=== PATIENT | female | born 1960 | race Caucasian/White ===

== ENCOUNTER 2017-06-10 08:06 | Emergency (ER) | payer BC ==
[2017-06-10 08:16] VITALS: BP 173/75
--- NOTE | 2017-06-10 14:46 | UC ---
Queenie Villareal Gabriel, scribed for Cayla Weldon MD on 06/10/17 at 0849 . Complaint Female HPI - HPI Summary HPI Summary: This patient is a 56 year old F c/o freq / urg, hematuria since last evening. No fever / chills. No N/v/d. No rash. + bladder discomfort with urination. Passed a couple clots with urine. Drank lots of water, better this morning, but wanted to be checked. Also notes that she has had ongoing sinus congestion , ear congestion, swollen "glands" (neck) since mid last month. Taking decongestants, which helps but does not alleviate sx. - History Of Current Complaint Chief Complaint: UCGU Stated Complaint: URINARY ISSUE Time Seen by Provider: 06/10/17 08:20 Hx Obtained From: Patient Onset/Duration: Lasting Hours, Still Present Timing: Constant Severity Initially: Moderate Severity Currently: None Pain Intensity: 8 Pain Scale Used: 0-10 Numeric Character: Burning Aggravating Factor(s): Urination Associated Signs And Symptoms: Positive: Negative - increased back pain from baseline, Vaginal Bleeding/Discharge. Negative: Back Pain - Allergies/Home Medications Allergies/Adverse Reactions: Allergies Allergy/AdvReac Type Severity Reaction Status Date / Time No Known Allergies Allergy Verified 06/10/17 08:16 Home Medications: Home Medications Atorvastatin* [Lipitor 10 MG*] 1 tab PO DAILY 06/10/17 [History Confirmed ] Biotin 1 tab PO DAILY 06/10/17 [History Confirmed 06/10/17] Cholecalciferol [Vitamin D] 1 tab PO DAILY 06/10/17 [History Confirmed 06/10/17] Guaifenesin [Guaifenesin ER] 1 tab PO Q12HR PRN 06/10/17 [History Confirmed ] PMH/Surg Hx/FS Hx/Imm Hx Previously Healthy: Yes Other History Of: Negative For: HIV, Hepatitis B - Surgical History Surgical History: None - Family History Known Family History: Negative: Hypertension - Social History Alcohol Use: Rare Substance Use Type: None Smoking Status (MU): Former Smoker Household Exposure Type: Cigarettes - Immunization History Most Recent Influenza Vaccination: 04/2017 Review of Systems Constitutional: Negative Skin: Negative Eyes: Negative ENT: Sore Throat, Sinus Congestion Respiratory: Cough - nonprod Cardiovascular: Negative Gastrointestinal: Negative Genitourinary: Hematuria - clotting, Urgency, Other - cloudy urine see hpi Motor: Negative Neurovascular: Negative Musculoskeletal: Negative Neurological: Negative Psychological: Negative Is Patient Immunocompromised?: No All Other Systems Reviewed And Are Negative: Yes Physical Exam Triage Information Reviewed: Yes Appearance: Well-Nourished - sitting up, conversing easily and appropriately Vital Signs: Initial Vital Signs Temp 97.0 F 06/10/17 08:11 Pulse 97 06/10/17 08:11 Resp 16 06/10/17 08:11 BP 173/75 06/10/17 08:11 Pulse Ox 98 06/10/17 08:11 Vital Signs Reviewed: Yes Eye Exam: Normal ENT Exam: Other ENT: Positive: Pharyngeal erythema - mild post pharyngeal redness, Other - Chang , Retracted TM L>R. Neck exam: Normal Neck: Positive: Supple, Nontender, Other: - mild ant adenopathy Respiratory Exam: Normal, Other - no dyspnea, no tachypnea, normal respiratory rate Respiratory: Positive: Chest non-tender, Lungs clear Cardiovascular Exam: Normal - Heart rate regular, good general skin color, good capillary refill Abdominal Exam: Normal Abdomen Description: Positive: Nontender, No Organomegaly, Soft Bowel Sounds: Positive: Present, Other: - No CVAT appreciated Musculoskeletal Exam: Normal Musculoskeletal: Positive: Strength Intact Neurological Exam: Normal - nonfocal, grossly intact Psychological Exam: Normal - conversing easily and appropriately Skin Exam: Normal - no visible or reported rash Complaint Female Dx - Course Course Of Treatment: Reviewed urine dip with pt. Reviewed recommendation for f/ u PCP as scheduled. Advised to hold off taking decongestant for now (BP). Urine cx sent. Reviewed coa / tx plan. Questions as posed answered to the best of my ability. - Differential Dx/Diagnosis Provider Diagnoses: cystitis with hematuria. upper resp congestion. elevated BP Discharge - Discharge Plan Condition: Stable Disposition: HOME Prescriptions: Ciprofloxacin TAB* [Cipro 500 MG TAB*] 500 mg PO BID #14 tab Patient Education Materials: Urinary Tract Infection in Women (ED), Rhinosinusitis (ED), Hematuria (ED), Hypertension in the Older Adult (ED) Referrals: Sherri Brian MD [Primary Care Provider] - Additional Instructions: Your blood pressure was elevated during today's visit, 173/75. Please follow up with your primary care provider in 1-2 weeks. Do not take your vitamin D supplement at the same time as your antibiotic (wait 2 hours), drink plenty of water, and avoid prolonged direct sun exposure. If you have sudden unexplained joint pain stop the antibiotic and see your primary care provider. Stop taking your decongestant. See medical attention for worse or new problems. The documentation as recorded by the Queenie bhakta Gabriel accurately reflects the service I personally performed and the decisions made by me, Cayla Weldon MD.
== END 2017-06-10 09:01 | disposition home or self-care (01) ==
LOC: UCEAST 08:06
DX: N30.91 Cystitis, unspecified with hematuria (principal); R09.81 Nasal congestion; R03.0 Elevated blood-pressure reading, without diagnosis of hypertension
CPT/HCPCS: 81003; 87086; 99212; G0463

== ENCOUNTER 2017-09-01 09:09 | Emergency (ER) | payer BC ==
[2017-09-01 09:18] VITALS: BP 164/97
[2017-09-01] MEDS ORDERED: Aspirin 81 mg CHEW TAB* 81 MG TAB.CHEW PO ONE (09:39)
--- NOTE | 2017-09-01 17:01 | UC ---
Sukumar Villareal Angela, scribed for Eddie Ma MD on 09/01/17 at 0938 . Cardiac HPI - HPI Summary HPI Summary: This pt is a 57 y/o female presenting to [facility] c/o chest pain for the past 2 weeks. Pt states her pain began 2 weeks ago after she took decongestants. Pt describes her chest pain as pressure and squeezing. She rates her pain as 7 out of 10 in severity and notes it is intermittent. Pt reports she has been traveling and flying for the last 2 weeks and today her symptoms worsened. She additionally states SOB and some nausea. Denies dizziness. - History of Current Complaint Chief Complaint: UCChestPain Stated Complaint: CHEST COMPLAINT Time Seen by Provider: 09/01/17 09:20 Hx Obtained From: Patient Onset/Duration: Lasting Days, Still Present Timing: Constant Current Severity: Severe Pain Intensity: 7 Chest Pain Location: Diffuse Character: Pressure/Squeezing - pressure and squeezing Aggravating Factor(s): Nothing Alleviating Factor(s): Nothing Associated Signs & Symptoms: Positive: Chest Pain, SOB, Nausea/Vomiting - nausea. Negative: Dizziness - Allergy/Home Medications Allergies/Adverse Reactions: Allergies Allergy/AdvReac Type Severity Reaction Status Date / Time No Known Allergies Allergy Verified 09/01/17 09:18 PMH/Surg Hx/FS Hx/Imm Hx Other Endocrine History: DENIES: diabetes Cardiovascular History: Other Other Cardiovascular History: dyslipidemia Other History Of: Negative For: HIV, Hepatitis B - Surgical History Surgical History: None - Family History Known Family History: Positive: Hypertension - Social History Alcohol Use: Occasionally Substance Use Type: None Smoking Status (MU): Former Smoker Household Exposure Type: Cigarettes - Immunization History Most Recent Influenza Vaccination: 04/2017 Review of Systems Constitutional: Negative Skin: Negative Eyes: Negative ENT: Negative Respiratory: Shortness Of Breath Cardiovascular: Chest Pain Gastrointestinal: Nausea Genitourinary: Negative Motor: Negative Neurovascular: Negative Musculoskeletal: Negative Neurological: Negative Psychological: Negative All Other Systems Reviewed And Are Negative: Yes Physical Exam - Summary Physical Exam Summary: VITAL SIGNS: Reviewed. GENERAL: Patient is a well-developed and nourished female who is lying comfortable in the stretcher. Patient is not in any acute respiratory distress. HEAD AND FACE: Normocephalic EYES: PERRLA, EOMI x 2. EARS: Hearing grossly intact. MOUTH: Oropharynx within normal limits. NECK: Supple, trachea is midline, no adenopathy, no JVD, no carotid bruit. CHEST: Symmetric, no tenderness at palpation LUNGS: Clear to auscultation bilaterally. No wheezing or crackles. CVS: Regular rate and rhythm, S1 and S2 present, no murmurs or gallops appreciated. Pt is hypertensive. ABDOMEN: Soft, non-tender. Bowel sounds are normal. No abdominal abnormal pulsations. EXTREMITIES: Full ROM in all major joints, no edema, no cyanosis or clubbing. NEURO: Alert and oriented x 3. No acute neurological deficits. Speech is normal and follows commands. SKIN: Dry and warm Triage Information Reviewed: Yes Vital Signs: Initial Vital Signs Temp 98.0 F 09/01/17 09:12 Pulse 98 09/01/17 09:12 Resp 16 09/01/17 09:12 BP 164/97 09/01/17 09:12 Pulse Ox 96 09/01/17 09:12 Vital Signs Reviewed: Yes Diagnostics - EKG Cardiac Rate: NL Cardiac Rhythm: Sinus: Normal - EKG at 09:26 shows normal sinus rhythm at [address] elevations. No ST depressions. - Assessment/Plan Course Of Treatment: This pt is a 57 y/o female presenting to [facility] c/o chest pain for the past 2 weeks. Pt states her pain began 2 weeks ago after she took decongestants. Pt describes her chest pain as pressure and squeezing. She rates her pain as 7 out of 10 in severity and notes it is intermittent. Pt reports she has been traveling and flying for the last 2 weeks and today her symptoms worsened. She additionally states SOB and some nausea. Denies dizziness. In the UC course the pt was given aspirin. The EKG shows no STEMI, however due to the pts symptoms and comorbidities I will send the pt to the ED for further assessment. Pt understands and agrees. She was offered an ambulance but she declines ambulance. Pts will drive the pt to the ED via private car. At 09:42 I discussed pts case with Dr. Canales, provider in the ED. Plan of care was discussed with the patient and pt understands and agrees. All questions were answered to patient satisfaction. Pt will be discharged to go immediately to the emergency department. Pt is hemodynamically stable, alert and oriented x3. The patient was found to have increased blood pressure in UC. The patient will follow up with PCP for better control of BP. - Clinical Impression Provider Diagnoses: Chest pain. Hypertension - Physician Notifications Discussed Patient Care With: Migel Canales Time Discussed With Above Provider: 07:42 Instructed by Provider To: Transfer - I discussed pt care with Dr. Canales. Pt will be transferred to the ED. Discharge - Sign-Out/Discharge Documenting (check all that apply): Discharge - discharge to home - Discharge Plan Condition: Stable Disposition: HOME Patient Education Materials: Chest Pain (DC), Chronic Hypertension (DC) Referrals: Sherri Brian MD [Primary Care Provider] - Additional Instructions: Patient will be discharge to the ED for further assessment. Declined ambulance. FOLLOW UP WITH YOUR PRIMARY CARE PROVIDER WITHIN ONE WEEK FOR HIGH BLOOD PRESSURE NOTED TODAY. RETURN TO URGENT CARE OR THE ED FOR ANY WORSENING OR NEW SYMPTOMS. The documentation as recorded by the Sukumar bhakta Angela accurately reflects the service I personally performed and the decisions made by , Eddie Ma MD.
== END 2017-09-01 09:51 | disposition home or self-care (01) ==
LOC: UCEAST 09:09
DX: R07.89 Other chest pain (principal); I10 Essential (primary) hypertension; R06.02 Shortness of breath; R11.2 Nausea with vomiting, unspecified; E78.5 Hyperlipidemia, unspecified; Z87.891 Personal history of nicotine dependence
CPT/HCPCS: 93005; 99212; G0463

== ENCOUNTER → 2017-09-01 10:01 | Emergency (ER) | payer BC ==
[2017-09-01 11:01] LABS: ABS Basophils 0 10^3/ul (0-0.2); ABS Eosinophils 0.1 10^3/ul (0-0.6); ABS Lymphocytes 1.7 10^3/ul (1.0-4.8); ABS Monocytes 0.5 10^3/ul (0-0.8); ABS Nucleated RBC 0 10^3/ul; Eosinophil % 1.8 % (0-6); Hematocrit 40 % (35-47); Hemoglobin 13.3 g/dl (12.0-16.0); Lymphocyte % 26.5 % (25-47); Mean Corpuscular HGB Conc 33 g/dl (31-36); Mean Corpuscular Hemoglobin 30 pg (27-31); Mean Corpuscular Volume 91 fL (80-97); Mean Platelet Volume 8.9 um3 (7.4-10.4); Nucleated Red Blood Cells % 0; Platelet Count 210 10^3/ul (150-450); Red Blood Count 4.43 10^6/ul (4.0-5.4); Red Cell Distribution Width 14 % (10.5-15); White Blood Count 6.3 10^3/ul (3.5-10.8)
[2017-09-01 11:13] LABS: INR 0.93 (0.77-1.02)
[2017-09-01 11:27] LABS: EGFR Non-African American 104.3 (>60)
--- NOTE | 2017-09-01 12:27 | RAD ---
INDICATION: Chest heaviness for approximately one week. COMPARISON: No relevant prior exams available on the [facility] PACS for comparison. TECHNIQUE: Dual energy PA and routine lateral views of the chest were obtained. REPORT: Accounting for superimposed soft tissues with large body habitus and normal bronchovascular structures the lungs and pleural spaces are clear. Negative for pneumothorax. The heart, pulmonary vasculature, and mediastinal contours are unremarkable. Unremarkable osseous structures for age. IMPRESSION: No evidence for acute intrathoracic disease.
[2017-09-01 14:08] VITALS: BP 144/81
--- NOTE | 2017-09-01 20:32 | ED ---
Uyen Villareal Edward, scribed for Erwin La MD on 09/01/17 at 1022 . HPI Chest Pain - HPI Summary HPI Summary: 57 y/o female c/o constant CP for the past week and a half. CP described as a squeezing pain located in the middle of the chest. CP not aggravated or alleviated by anything. Pt was seen at [facility] today and sent to the ED for high blood pressure, checked by nurse at [facility]. Associated sx: nasal congestion, L arm pain. Pt takes Lipitor, stopped and restarted a couple of weeks ago. - History of Current Complaint Chief Complaint: EDChestPainROMI Time Seen by Provider: 09/01/17 10:08 Hx Obtained From: Patient Onset/Duration: Started Weeks Ago, Still Present Timing: Constant Pain Intensity: 5 Chest Pain Location: Mid Sternal Character: Pressure/Squeezing Aggravating Factor(s): Nothing Alleviating Factor(s): Nothing Associated Signs and Symptoms: Positive: Chest Pain, Nasal Congestion, Other: - arm pain - Allergy/Home Medications Allergies/Adverse Reactions: Allergies Allergy/AdvReac Type Severity Reaction Status Date / Time No Known Allergies Allergy Verified 09/01/17 09:18 Home Medications: Home Medications Atorvastatin* [Lipitor*] 20 mg PO DAILY 09/01/17 [History Confirmed 09/01/17] Biotin 5 mg PO DAILY 09/01/17 [History Confirmed 09/01/17] Cholecalciferol TAB* [Vitamin D TAB*] 1,000 unit PO DAILY 09/01/17 [History Confirmed 09/01/17] PMH/Surg Hx/FS Hx/Imm Hx Previously Healthy: No Endocrine/Hematology History: Denies: Hx Diabetes Cardiovascular History: Denies: Hx Hypertension, Hx Pacemaker/ICD Sensory History: Denies: Hx Hearing Aid Psychiatric History: Denies: Hx Panic Disorder - Cancer History Hx Chemotherapy: No Hx Radiation Therapy: No Infectious Disease History: No Infectious Disease History: Denies: Traveled Outside the [place] in Last 30 Days - Family History Known Family History: Positive: Respiratory Disease - COPD - father Negative: Hypertension - Social History Alcohol Use: Rare Substance Use Type: Reports: None Smoking Status (MU): Former Smoker Review of Systems Constitutional: Negative Eyes: Negative ENT: Negative Positive: Chest Pain Respiratory: Negative Gastrointestinal: Negative Genitourinary: Negative Musculoskeletal: Other - L arm pain Skin: Negative Neurological: Negative Psychological: Normal All Other Systems Reviewed And Are Negative: Yes Physical Exam - Summary Physical Exam Summary: Appearance: The patient is well-nourished in no acute distress and in no acute pain. Skin: The skin is warm and dry and skin color reflects adequate perfusion. HEENT: The head is normocephalic and atraumatic. The pupils are equal and reactive. The conjunctivae are clear and without drainage. Nares are patent and without drainage. Mouth reveals moist mucous membranes and the throat is without erythema and exudate. The external ears are intact. The ear canals are patent and without drainage. The tympanic membranes are intact. Neck: the neck is supple with full range of motion and non-tender. There are no carotid bruits. There is no neck vein distension. Respiratory: Chest is non-tender. Lungs are clear to auscultation and breath sounds are symmetrical and equal. Cardiovascular: Heart is regular rate and rhythm. There is no murmur or rub auscultated. There is no peripheral edema and pulses are symmetrical and equal. Abdomen: The abdomen is soft and non-tender. There are normal bowel sounds heard in all four quadrants and there is no organomegaly palpated. Musculoskeletal: There is no back tenderness noted. Extremities are non-tender with full range of motion. There is good capillary refill. There is no peripheral edema or calf tenderness elicited. There is tenderness in the parasternal area on the left. Neurological: Patient is alert and oriented to person, place and time. The patient has symmetrical motor strength in all four extremities. Cranial nerves are grossly intact. Deep tendon reflexes are symmetrical and equal in all four extremities. Psychiatric: The patient has an appropriate affect and does not exhibit any anxiety or depression. Triage Information Reviewed: Yes Vital Signs On Initial Exam: Initial Vitals Temp Pulse Resp BP Pulse Ox 97.9 F 84 16 156/85 95 09/01/17 10:03 09/01/17 10:03 09/01/17 10:03 09/01/17 10:03 09/01/17 10:03 Vital Signs Reviewed: Yes Diagnostics - Vital Signs Vital Signs Temp Pulse Resp BP Pulse Ox 09/01/17 10:03 97.9 F 84 16 156/85 95 - Laboratory Lab Results: Lab Results 09/01/17 09/01/17 09/01/17 Range/Units 10:45 10:45 10:45 WBC 6.3 (3.5-10.8) 10^3/ul RBC 4.43 (4.0-5.4) 10^6/ul Hgb 13.3 (12.0-16.0) g/dl Hct 40 (35-47) % MCV 91 (80-97) fL MCH 30 (27-31) pg MCHC 33 (31-36) g/dl RDW 14 (10.5-15) % Plt Count 210 (150-450) 10^3/ul MPV 8.9 (7.4-10.4) um3 Neut % (Auto) 63.2 (38-83) % Lymph % (Auto) 26.5 (25-47) % Divide % (Auto) 8.2 H (0-7) % Eos % (Auto) 1.8 (0-6) % Baso % (Auto) 0.3 (0-2) % Absolute Neuts (auto) 4.0 (1.5-7.7) 10^3/ul Absolute Lymphs (auto) 1.7 (1.0-4.8) 10^3/ul Absolute Monos (auto) 0.5 (0-0.8) 10^3/ul Absolute Eos (auto) 0.1 (0-0.6) 10^3/ul Absolute Basos (auto) 0 (0-0.2) 10^3/ul Absolute Nucleated RBC 0 10^3/ul Nucleated RBC % 0 INR (Anticoag Therapy) 0.93 (0.77-1.02) D-Dimer, Quantitative < 200 (Less Than 230) ng/mL Sodium 140 (139-145) mmol/L Potassium 4.0 (3.5-5.0) mmol/L Chloride 107 (101-111) mmol/L Carbon Dioxide 27 (22-32) mmol/L Anion Gap 6 (2-11) mmol/L BUN 14 (6-24) mg/dL Creatinine 0.59 (0.51-0.95) mg/dL Est GFR ( Amer) 134.2 (>60) Est GFR (Non-Af Amer) 104.3 (>60) BUN/Creatinine Ratio 23.7 H (8-20) Glucose 113 H (70-100) mg/dL Lactic Acid (0.5-2.0) mmol/L Calcium 8.8 (8.6-10.3) mg/dL Total Bilirubin 0.30 (0.2-1.0) mg/dL AST 15 (13-39) U/L ALT 14 (7-52) U/L Alkaline Phosphatase 56 (34-104) U/L Troponin I 0.01 (<0.04) ng/mL Total Protein 7.0 (6.4-8.9) g/dL Albumin 4.1 (3.2-5.2) g/dL Globulin 2.9 (2-4) g/dL Albumin/Globulin Ratio 1.4 (1-3) 09/01/17 09/01/17 Range/Units 10:45 13:39 WBC (3.5-10.8) 10^3/ul RBC (4.0-5.4) 10^6/ul Hgb (12.0-16.0) g/dl Hct (35-47) % MCV (80-97) fL MCH (27-31) pg MCHC (31-36) g/dl RDW (10.5-15) % Plt Count (150-450) 10^3/ul MPV (7.4-10.4) um3 Neut % (Auto) (38-83) % Lymph % (Auto) (25-47) % Divide % (Auto) (0-7) % Eos % (Auto) (0-6) % Baso % (Auto) (0-2) % Absolute Neuts (auto) (1.5-7.7) 10^3/ul Absolute Lymphs (auto) (1.0-4.8) 10^3/ul Absolute Monos (auto) (0-0.8) 10^3/ul Absolute Eos (auto) (0-0.6) 10^3/ul Absolute Basos (auto) (0-0.2) 10^3/ul Absolute Nucleated RBC 10^3/ul Nucleated RBC % INR (Anticoag Therapy) (0.77-1.02) D-Dimer, Quantitative (Less Than 230) ng/mL Sodium (139-145) mmol/L Potassium (3.5-5.0) mmol/L Chloride (101-111) mmol/L Carbon Dioxide (22-32) mmol/L Anion Gap (2-11) mmol/L BUN (6-24) mg/dL Creatinine (0.51-0.95) mg/dL Est GFR ( Amer) (>60) Est GFR (Non-Af Amer) (>60) BUN/Creatinine Ratio (8-20) Glucose (70-100) mg/dL Lactic Acid 1.1 (0.5-2.0) mmol/L Calcium (8.6-10.3) mg/dL Total Bilirubin (0.2-1.0) mg/dL AST (13-39) U/L ALT (7-52) U/L Alkaline Phosphatase (34-104) U/L Troponin I 0.01 (<0.04) ng/mL Total Protein (6.4-8.9) g/dL Albumin (3.2-5.2) g/dL Globulin (2-4) g/dL Albumin/Globulin Ratio (1-3) Result Diagrams: 09/01/17 10:45 09/01/17 10:45 Lab Statement: Any lab studies that have been ordered have been reviewed, and results considered in the medical decision making process. - Radiology CXR Xray Interpretation: No Acute Changes - No evidence for acute intrathoracic disease Radiology Interpretation Completed By: Radiologist - EKG 1 EKG Interpretation: NSR @ 70 BPM. Normal variant, flipped T wave in III. Re-Evaluation - Re-Evaluation 1 Re-Evaluation Time: 12:53 Comment: Discuss test and lab results, plan of care 2 Re-Evaluation Time: 14:25 Comment: Trop results, plan to d/c Chest Pain Course/Dx - Course Course Of Treatment: Ms. Harrell has been having some mild left sided chest discomfort for the last week and a half. She also had an episode of not feeling right this AM. She went to the RN who found her BP to be mildly elevated and recommended that she come here rather than go th the 1045 appt. that she had with her PMD. She was kept on the monitor and remained stable. Her labs were fine including two troponins. - Diagnoses Provider Diagnoses: Chest pain, Hypertension Discharge - Sign-Out/Discharge Documenting (check all that apply): Discharge - Discharge Plan Condition: Stable Disposition: HOME Patient Education Materials: Chest Pain (ED), Hypertension (ED) Referrals: Sherri Brian MD [Primary Care Provider] - 4 Days (PLEASE F/U IN 3-5 DAYS) Additional Instructions: RETURN TO THE ED FOR CHANGING OR WORSENING SYMPTOMS - Billing Disposition and Condition Condition: STABLE Disposition: HOME The documentation as recorded by the Uyen bhakta Edward accurately reflects the service I personally performed and the decisions made by , Erwin La MD.
== END | disposition home or self-care (01) ==
LOC: ED 10:01
DX: R07.9 Chest pain, unspecified (principal); I10 Essential (primary) hypertension; R09.81 Nasal congestion
CPT/HCPCS: 36415; 71046; 80053; 83605; 84484; 85025; 85379; 85610; 93005; 99283